=== PATIENT | female | born 1990 | race Caucasian/White ===

== ENCOUNTER 2017-07-28 07:31 | Outpatient (CLI) | payer OTHER ==
--- NOTE | 2017-07-28 16:05 | Ultrasound Report ---
RIGHT UPPER QUADRANT ULTRASOUND: 07/28/2017 CLINICAL HISTORY: Post-prandial pain. COMPARISON: None. TECHNIQUE: Real time scanning by the vector control specialist with saved static images were reviewed. FINDINGS: LIVER: 16.5 cm longitudinally. Minimally increased echogenicity diffusely. GALLBLADDER: No stones. Wall thickness 2.2 mm. COMMON BILE DUCT: 3.9 mm. RIGHT KIDNEY: 9.7 cm longitudinally. No stones, masses, or obstruction. FREE FLUID: None. IMPRESSION: ESSENTIALLY NEGATIVE RIGHT UPPER QUADRANT ULTRASOUND. JOB #: [id number] EXT JOB #:[id number]
== END 2017-07-28 07:32 | disposition home or self-care (01) ==
LOC: DI 07:31
PROVIDERS: ATTEND Surgery
DX: R10.11 Right upper quadrant pain (principal)
CPT/HCPCS: 76705

== ENCOUNTER 2018-03-29 11:59 | Emergency (ER) | payer OTHER ==
[2018-03-29 12:11] VITALS: BP 139/86
--- NOTE | 2018-03-29 12:28 | ED Physician Documentation ---
PD HPI SKIN - Stated complaint Stated Complaint: LT ARM RASH/REDNESS - Chief complaint Chief Complaint: Wound - History obtained from History obtained from: Patient - History of Present Illness Timing - onset: How many days ago (5 days ago had colonoscopy with IV at left antecub area. She says it hurt while it was in more than any other IV she had had. It continued to hurt with some redness develop in [place] at the site. She says it is still hurting and today had a drop of pus material come out of it when she awoke. No pain up the arm nor at axilla.) Timing - duration: Days (5) Timing - details: Abrupt onset, Still present Location: Other (left antecubital site) Quality / character: Painful, Discolored (red patch around the IV site that has not grown nor spread, per patient) Associated symptoms: Abd pain (similar to prior to the colonoscopy (had the scope in eval for possible crohns).). No: Fever Contributing factors: Other (had IV at that site 5 days ago) Recently seen: Surgery (had colonoscopy 5 days ago with IV start at that AC site for the procedure. 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.) Review of Systems Constitutional: denies: Fever, Chills Skin: reports: Rash Neurologic: denies: Focal weakness, Numbness PD PAST MEDICAL HISTORY - Past Medical History Past Medical History: No GI: Other (possible colitis) Other Past Medical History: Possible crohns - Past Surgical History General: Colonoscopy - Present Medications Home Medications: Ambulatory Orders Medication Instructions Recorded Confirmed Doxycycline Monohydrate 100 mg PO BID #14 tablet 03/29/18 Naproxen 375 mg PO BID #20 tablet 03/29/18 - Allergies Allergies/Adverse Reactions: Allergies Allergy/AdvReac Type Severity Reaction Status Date / Time No Known Drug Allergies Allergy Verified 03/29/18 12:11 - Social History Does the pt smoke?: No Smoking Status: Never smoker Does the pt drink ETOH?: Yes Does the pt have substance abuse?: No - Immunizations Immunizations are current?: Yes - POLST Patient has POLST: No PD ED PE NORMAL - Vitals Vital signs reviewed: Yes - General General: Alert and oriented X 3, No acute distress, Well developed/nourished - Derm Derm: Warm and dry - Extremities Extremities: Other (left antecubital area with rounded area of redness, well demarcated that looks like local dermatitis (consider to the tegaderm over IV or such). Local tenderness without fluctuance nor induration. No cord nor tenderness proximal up the arm nor any axillary nodes. ) Results - Vitals Vitals: Vital Signs - 24 hr 03/29/18 12:09 Temperature 37 C Heart Rate 84 Respiratory 14 Rate Blood Pressure 139/86 H O2 Saturation 100 PD MEDICAL DECISION MAKING - ED course Complexity details: considered differential (local tenderness and some redness. Likely phlebitis at IV site. She says it has had some drainage this morning of purulent material (just a drop or so) so consider local infection. ), d/w patient Departure - Departure Disposition: 01 Home, Self Care Clinical Impression: Superficl phlebitis arm IV site infection Qualifiers: Encounter type: initial encounter Qualified Code(s): T82.7XXA - Infection and inflammatory reaction due to other cardiac and vascular devices, implants and grafts, initial encounter Condition: Stable Record reviewed to determine appropriate education?: Yes Instructions: ED Staph Infec Abx Tx Only, ED Phlebitis Superficial Follow-Up: Shannon Newman ARNP [Primary Care Provider] - Prescriptions: Doxycycline Monohydrate 100 mg PO BID #14 tablet Naproxen 375 mg PO BID #20 tablet Comments: Cleanse the area once or twice daily and apply some ointment but not the triple antibiotic. You could use and D ointment or aloe or good skin lotion. Sometimes they can be reaction to the antibiotic ointment over time. The most common complication at an IV site is just inflammation of the vein called phlebitis and this would be treated with anti-inflammatories and warm moist towels periodically. Since you are having some drainage from it in the mornings , we treated as potential infection to with doxycycline antibiotic. Recheck if not improving over the next 2-3 days and return sooner if worsening. Discharge Date/Time: 03/29/18 13:04
[2018-03-29] MEDS ORDERED: DOXYCYCLINE 100 MG TABLET PO STA (12:52)
[2018-03-29] MEDS ORDERED: NAPROXEN 250 MG TABLET PO STA (12:52)
== END 2018-03-29 13:04 | disposition home or self-care (01) ==
LOC: ED 11:59
DX: I80.8 Phlebitis and thrombophlebitis of other sites (principal); T82.7XXA Infection and inflammatory reaction due to other cardiac and vascular devices, implants and grafts, initial encounter
CPT/HCPCS: 99283; A9270

== ENCOUNTER 2018-04-04 23:49 | Emergency (ER) | payer OTHER ==
[2018-04-05 00:02] VITALS: BP 165/105
== END 2018-04-05 02:05 | disposition left against medical advice (07) ==
LOC: ED 23:49
DX: Z53.9 Procedure and treatment not carried out, unspecified reason (principal)
CPT/HCPCS: 99281